=== PATIENT | male | born 1965 | race Caucasian/White ===

== ENCOUNTER 2018-08-11 17:00 | Emergency (ER) | payer MEDICARE, MEDICAID ==
[~2018-08-11] VITALS: Ht 167.6 cm; Wt 97.7 kg
[2018-08-11 18:33] VITALS: BP 134/84
== END 2018-08-11 18:34 ==
LOC: EMS 17:02
DX: Z02.89 Encounter for other administrative examinations (principal); F41.9 Anxiety disorder, unspecified; F31.9 Bipolar disorder, unspecified
CPT/HCPCS: 93005

== ENCOUNTER 2024-12-30 14:55 | Emergency (ER) | payer MEDICAID, MEDICARE, OTHER ==
[~2024-12-30] VITALS: Ht 167.6 cm; Wt 108.1 kg
[2024-12-30 15:09] VITALS: TEMP 98.4
[2024-12-30 15:15] VITALS: BP 176/98; PULSE 61; RESP 16; O2SAT 95
[2024-12-30 15:44] LABS: APPEARANCE,URINE CLEAR (CLEAR); GLUCOSE, URINE (UA) NEGATIVE (NEGATIVE); LEUKOCYTE ESTERASE ,URINE NEGATIVE (NEGATIVE); NITRATE,URINE NEGATIVE (NEGATIVE); OCCULT BLOOD,URINE NEGATIVE (NEGATIVE); SPECIFIC GRAVITIY, URINE 1.015 (1.003-1.030)
[2024-12-30 15:46] LABS: GLUCOMETER DEV NAME(LOC) ERT.7; GLUCOSE,POINT OF CARE 123 MG/DL (70-110)
[2024-12-30 16:00] LABS: PLATELET COUNT (AUTO) 227 K/uL (150-450); RED BLOOD CELL COUNT(AUTO) 5.62 MIL/uL (4.50-5.90); RED CELL DISTRIBUTION WIDTH 13.7 % (11.5-14.5); WHITE BLOOD COUNT (AUTO) 9.2 K/uL (4.5-11.0)
[2024-12-30 16:06] LABS: CALCIUM, TOTAL 8.9 mg/dL (8.8-10.5); CREATININE 0.71 mg/dL (0.60-1.30); GLOMERULAR FILTR. RATE CALC > 60 mL/min (>60); GLUCOSE,RANDOM 100 mg/dL (70-110); SODIUM SERUM 139 mmol/L (136-145); UREA NITROGEN, BLOOD 15 mg/dL (7-18)
== END 2024-12-30 18:36 ==
LOC: EMS 14:55
DX: D17.23 Benign lipomatous neoplasm of skin and subcutaneous tissue of right leg (principal); F31.9 Bipolar disorder, unspecified; Z65.3 Problems related to other legal circumstances; Z02.89 Encounter for other administrative examinations
CPT/HCPCS: 74176; 80048; 81003; 82962; 85025; 99284